=== PATIENT | male | born 1960 | race Hispanic/Latino ===

== ENCOUNTER 2018-09-02 07:01 | Emergency (ER) | payer MEDICARE ==
[2018-09-02 07:23] LABS: BASOPHILS % (AUTO) 0.7 % (0.0-5.0); EOSINOPHILS % (AUTO) 0.4 % (0.0-8.0); HEMATOCRIT 39.7 % (42-54); LYMPHOCYTES % (AUTO) 19.9 % (21.0-51.0); MEAN CORPUSCULAR HEMOGLOBIN 26.6 pg (27.0-33.0); MEAN CORPUSCULAR HGB CONC 32.4 g/dL (32.0-36.0); MEAN CORPUSCULAR VOLUME 81.9 fL (79-99); MONOCYTES % (AUTO) 8.6 % (3.0-13.0); NEUTROPHILS % (AUTO) 70.4 % (40.0-77.0); NUCLEATED RED BLOOD CELLS 0.2 % (0.0-0.19); PLATELET COUNT (AUTO) 205 K/uL (130-400); RED BLOOD CELL COUNT(AUTO) 4.85 MIL/uL (4.50-6.20); RED CELL DISTRIBUTION WIDTH 14.7 % (11.0-15.5); WHITE BLOOD COUNT (AUTO) 5.4 K/uL (4.8-10.8)
[2018-09-02 07:35] LABS: CREATININE 0.8 mg/dL (0.5-1.5); POTASSIUM 3.7 mmol/L (3.5-5.1)
[2018-09-02 07:41] LABS: ALBUMIN 4.2 g/dL (3.5-5.0); BILIRUBIN,TOTAL 0.4 mg/dL (0.2-1.0); TOTAL PROTEIN, SERUM 7.5 g/dL (6.0-8.3)
[2018-09-02 07:54] LABS: INR 0.98 (0.85-1.15); PARTIAL THROMBOPLASTIN TIME 26.3 SEC (26.3-35.5); PROTHROMBIN TIME 10.3 SEC (9.6-11.6)
[2018-09-02] MEDS ORDERED: KETOROLAC TROMETHAMINE 30MG/ML ONE (08:45)
[2018-09-02 09:07] LABS: AMPHET/METH SCREEN,URINE NEGATIVE (NEGATIVE); BARBITURATE SCREEN, URINE NEGATIVE (NEGATIVE); BENZODIAZEPINES SCREEN,URINE NEGATIVE (NEGATIVE); CANNABINOID SCREEN,URINE NEGATIVE (NEGATIVE); COCAINE SCREEN,URINE POSITIVE (NEGATIVE); OPIATE SCREEN,URINE NEGATIVE (NEGATIVE); PHENCYCLIDINE SCREEN,URINE NEGATIVE (NEGATIVE)
[2018-09-02] MEDS ORDERED: CLONIDINE HCL 0.1 MG TABLET ONE (10:21)
== END 2018-09-02 10:41 | disposition home or self-care (01) ==
LOC: EDH 07:01
DX: F14.10 Cocaine abuse, uncomplicated (principal); R07.89 Other chest pain; F32.9 Major depressive disorder, single episode, unspecified; F41.9 Anxiety disorder, unspecified; K21.9 Gastro-esophageal reflux disease without esophagitis; I10 Essential (primary) hypertension; Z88.2 Allergy status to sulfonamides; Z72.0 Tobacco use; Z79.899 Other long term (current) drug therapy
CPT/HCPCS: 36415; 71045; 80053; 80305; 84484 ×2; 85025; 85610; 85730; 93005 ×2; 96374; 99285; J1885

== ENCOUNTER 2019-03-10 06:44 | Day surgery (SDC) | payer MEDICARE ==
[~2019-03-10] VITALS: Ht 185.4 cm; Wt 90.7 kg
[~2019-03-10 06:44] MED LIST: SODIUM CHLORIDE 0.9% 1000ML 0 ML IV ONE; SODIUM CHLORIDE 0.9% 1000ML 1,000 ML IV ONE
[2019-03-10 07:49] VITALS: BP 123/73
[2019-03-10] MEDS ORDERED: FERR-82 PO (08:06)
[2019-03-10] MEDS ORDERED: ROPI1TAB11 PO (08:06)
[2019-03-10] MEDS ORDERED: AMLO5TAB9 PO (08:06)
[2019-03-10] MEDS ORDERED: HYDR-4068 PO (08:06)
[2019-03-10] MEDS ORDERED: CLON0.1T PO (08:06)
[2019-03-10] MEDS ORDERED: DULO60CA64 PO (08:06)
[2019-03-10] MEDS ORDERED: SYMBICORT (08:08)
[2019-03-10] MEDS ORDERED: PANT40TA25 PO (08:08)
[2019-03-10] MEDS ORDERED: PREG100C55 PO (08:08)
[2019-03-10] MEDS ORDERED: CARV6.25 PO (08:09)
[2019-03-10] MEDS ORDERED: [UNRECOGNIZED DRUG - OTHER] PO (08:09)
[2019-03-10] MEDS ORDERED: PROPOFOL 10 MG/ML 20ML VIAL IV ONE ×2 (08:12→08:32)
[2019-03-10 08:55] VITALS: BP 117/62
[2019-03-10 09:00] VITALS: BP 112/62
[2019-03-10 09:05] VITALS: BP 110/75
== END 2019-03-10 09:29 | disposition home or self-care (01) ==
LOC: ENDO 06:44 → DAH 06:44 → ENDO 09:29
PROVIDERS: ATTEND Internal Medicine Gastroenterology
DX: K31.89 Other diseases of stomach and duodenum (principal); K29.50 Unspecified chronic gastritis without bleeding; I10 Essential (primary) hypertension; E78.5 Hyperlipidemia, unspecified; F41.9 Anxiety disorder, unspecified; K59.00 Constipation, unspecified; F32.9 Major depressive disorder, single episode, unspecified; J45.909 Unspecified asthma, uncomplicated; Z98.890 Other specified postprocedural states; Z79.899 Other long term (current) drug therapy
CPT/HCPCS: 43236; 43239; 43242; A4215 ×2; A4221; A4222; A4223; A4606; A4620; A4663; J2704 ×2; J7030